=== PATIENT | female | born 1935 | race Caucasian/White ===

== ENCOUNTER 2020-04-03 11:44 | Inpatient (IN) ==
[2020-04-03] MEDS ORDERED: NS 0.9% 1000 ml BAG 1,000 ML IV ONE (12:37)
[2020-04-03 13:24] LABS: ABS Basophils 0.1 10^3/ul (0-0.2); ABS Eosinophils 0.2 10^3/ul (0-0.6); ABS Lymphocytes 4.4 10^3/ul (1.0-4.8); ABS Monocytes 0.4 10^3/ul (0-0.8); Eosinophil % 1.6 %; Hematocrit 35 % (35-47); Lymphocyte % 33.6 %; Mean Corpuscular HGB Conc 34 g/dL (31-36); Mean Corpuscular Hemoglobin 28 pg (27-31); Mean Corpuscular Volume 83 fL (80-97); Mean Platelet Volume 7.4 fL (7.4-10.4); Platelet Count 206 10^3/uL (150-450); Red Blood Count 4.26 10^6 /uL (3.70-4.87); Red Cell Distribution Width 14 % (10-15)
[2020-04-03 13:43] LABS: Albumin 3.3 g/dL (3.2-5.2); BUN/Creatinine Ratio 16.3 (8-20); C Reactive Protein 208.6 mg/L (<8.01); Calcium 9.1 mg/dL (8.6-10.3); EGFR African American 76.4 (>60); EGFR Non-African American 63.2 (>60); Globulin 3.2 g/dL (2-4); Potassium 3.2 mmol/L (3.5-5.0); Total Bilirubin 0.7 mg/dL (0.2-1.0); Total Protein 6.5 g/dL (6.4-8.9); Troponin I 0.01 ng/mL (<0.03)
[2020-04-03 13:45] LABS: Activated Partial Thrombo Time 27.8 seconds (26.0-38.0); INR 2.28 (0.82-1.09)
[2020-04-03 14:13] LABS: Ferritin 1043.2 ng/mL (11-307)
[2020-04-03 14:33] LABS: Influenza A Molecular Negative (Negative); Influenza B Molecular Negative (Negative)
[2020-04-03] MEDS ORDERED: Lactated Ringers 1000 ml BAG 1,000 ML IV SCH (15:00)
[2020-04-03] MEDS ORDERED: Ondansetron 4 mg VIAL 2 MG/ML 2 ml VIAL IV PRN (15:39)
[2020-04-03] MEDS: KCL 20 MEQ/100 ML IVPREMIX 20 MEQ/100 ML BAG IV SCH ×2 (16:16→17:53)
[2020-04-03] MEDS: Enoxaparin 30 MG/0.3 ML SYR SUBCUT SCH (17:53)
[2020-04-04 05:33] LABS: ABS Basophils 0.1 10^3/ul (0-0.2); ABS Eosinophils 0.3 10^3/ul (0-0.6); ABS Lymphocytes 3.8 10^3/ul (1.0-4.8); ABS Monocytes 0.3 10^3/ul (0-0.8); ABS Neutrophils 6.8 10^3/ul (1.5-7.7); Eosinophil % 2.5 %; Hematocrit 32 % (35-47); Hemoglobin 10.8 g/dL (12.0-16.0); Mean Corpuscular HGB Conc 34 g/dL (31-36); Mean Corpuscular Hemoglobin 28 pg (27-31); Mean Corpuscular Volume 84 fL (80-97); Mean Platelet Volume 7.6 fL (7.4-10.4); Platelet Count 201 10^3/uL (150-450); Red Blood Count 3.82 10^6 /uL (3.70-4.87); Red Cell Distribution Width 15 % (10-15); White Blood Count 11.3 10^3/uL (3.5-10.8)
[2020-04-04] MEDS: Aspirin EC 81 mg TAB.EC (enteric coated) PO SCH (08:16)
[2020-04-04] MEDS: Cholecalciferol (VIT D3) 1,000 unit TAB PO SCH (08:16)
[2020-04-04 12:10] LABS: Urine Appearance Clear; Urine Bilirubin Negative (Negative); Urine Blood 2+ (Negative); Urine Color Yellow; Urine Glucose Negative (Negative); Urine Ketones 1+ (Negative); Urine Nitrite Negative (Negative); Urine Protein Negative (Negative); Urine Specific Gravity 1.012 (1.010-1.030); Urine Urobilinogen Positive (Negative)
[2020-04-04 12:13] LABS: Urine Bacteria Absent (Absent); Urine Red Blood Cell 3+(>10/hpf) (Absent); Urine Squamous Epithelial Cell Present (Absent); Urine White Blood Cell Trace(0-5/hpf) (Absent)
[2020-04-04 12:43] LABS: BUN/Creatinine Ratio 17.2 (8-20); Calcium 8.4 mg/dL (8.6-10.3); EGFR African American 107.5 (>60); EGFR Non-African American 88.8 (>60)
[2020-04-04] MEDS: KCL 20 MEQ/100 ML IVPREMIX 20 MEQ/100 ML BAG IV SCH ×2 (14:50→18:35)
[2020-04-04] MEDS: Enoxaparin 30 MG/0.3 ML SYR SUBCUT SCH (18:06)
[2020-04-05 11:07] VITALS: BP 109/49
[2020-04-05] MEDS: Aspirin EC 81 mg TAB.EC (enteric coated) PO SCH (12:22)
[2020-04-05] MEDS: Cholecalciferol (VIT D3) 1,000 unit TAB PO SCH (12:22)
== END 2020-04-05 14:00 | disposition home or self-care (01) | DRG 866 ==
LOC: ED 11:44 → MED 15:15 → SSU 04-05 01:10
PROVIDERS: ADMIT Internal Medicine; ATTEND Internal Medicine